=== PATIENT | female | born 1945 | race African-American/Black ===

== ENCOUNTER 2017-07-17 17:26 | Emergency (ER) | payer MEDICARE, BC ==
[~2017-07-17] VITALS: Ht 165.1 cm; Wt 83.0 kg
[2017-07-17] MEDS ORDERED: CLOP75TA PO (17:43)
[2017-07-17] MEDS ORDERED: ATOR10TA PO (17:43)
[2017-07-17] MEDS ORDERED: METO-269 PO (17:43)
[2017-07-17] MEDS ORDERED: LOSA50TA2 PO (17:43)
[2017-07-17] MEDS ORDERED: ASPI-630 PO (17:43)
--- NOTE | 2017-07-17 18:21 | EKG ---
[facility] [address] [place] [address] Test Date: 2017-07-17 Test Time: 17:37:10 Pat Name: ABDOULAYE GOMEZ Department: Room: Gender: F Director Of Culture: : 1945 Requested By: KAI SLADE Order Number: [id number] Reading MD: Yanique Ramesh Measurements Intervals [place] Rate: 122 P: MI: QRS: -18 QRSD: 88 T: -63 QT: 336 QTc: 480 Interpretive Statements ATRIAL FIB./FLUTTER WITH RAPID VENTRICULAR RESPONSE VENTRICULAR PREMATURE COMPLEX(ES) LEFTWARD AXIS LVH WITH REPOLARIZATION ABNORMALITY Electronically Signed On 07-21-2017 9:27:20 CDT by Yanique Ramesh
[2017-07-17] MEDS ORDERED: METOPROLOL TART IMMED RELEASE 50 MG TABLET. PO ONE (18:30)
[2017-07-17] MEDS ORDERED: OXYMETAZOLINE 0.05% NASAL SPRAY 30ML BOTTLE. NS ONE (18:30)
--- NOTE | 2017-07-17 18:56 | ED.ADGEN ---
Past Medical History Past Medical History: A-Fib, High Cholesterol, Hypertension Past Surgical History: Hysterectomy Alcohol Use: None Drug Use: None Adult General Chief Complaint Chief Complaint: NOSEBLEED HPI HPI Patient is a 71 year old woman, history of atrial fibrillation, hypertension, hyperlipidemia, obesity, on metoprolol and Cozaar, with recent medication changes about a week ago, who presents emergency Department with a complaint of epistaxis. Patient states that she was at work, making copies, when she felt "a warm trickle", and noted that her nose is bleeding. She denies any recent runny nose, nasal congestion, cough, sore throat, chest pain, shortness breath, nausea , vomiting, headache, weakness, numbness, tingling or other complaints. Patient noted to be in atrial fibrillation, with RVR, with heart rate fluctuating from the low 100s to the 120s upon arrival to the emergency department, blood pressures are 170s over 1 teens. Patient with a nasal clamp in place, no active bleeding noted at this time. She does take Plavix and aspirin daily. Has never had any previous episodes with epistaxis. Is not experiencing any bleeding at this time with nasal clamp in place. Review of Systems Review of Systems Constitutional: Denies fever or chills. [] Eyes: Denies change in visual acuity. [] HENT: Denies nasal congestion or sore throat. [] Respiratory: Denies cough or shortness of breath. Epistaxis. [] Cardiovascular: Denies chest pain or edema. [] GI: Denies abdominal pain, nausea, vomiting, bloody stools or diarrhea. [] : Denies dysuria. [] Musculoskeletal: Denies back pain or joint pain. [] Integument: Denies rash. [] Neurologic: Denies headache, focal weakness or sensory changes. [] Endocrine: Denies polyuria or polydipsia. [] Lymphatic: Denies swollen glands. [] Psychiatric: Denies depression or anxiety. [] Current Medications Current Medications Current Medications Medications (Trade) Dose Ordered Sig/Coty Start Time Stop Time Status Last Admin Dose Admin Metoprolol Tartrate (Lopressor) 50 mg 1X ONCE 07/17/17 18:30 07/17/17 18:31 DC 07/17/17 18:29 50 MG Oxymetazoline HCl (Afrin) 2 spray 1X ONCE 07/17/17 18:30 07/17/17 18:31 DC 07/17/17 18:28 2 SPRAY Allergies Allergies Allergies Coded Allergies Type Severity Reaction Last Updated Verified tetracycline Allergy Intermediate Rash 07/17/17 Yes Physical Exam Physical Exam Constitutional: Well developed, well nourished, no acute distress, non-toxic appearance. [] HENT: Normocephalic, atraumatic, bilateral external ears normal, oropharynx moist, no oral exudates, patient with nasal clamp in place, noted to have clotted blood in both naris, with dried blood in the oropharynx. No active bleeding identified. Eyes: PERRLA, EOMI, conjunctiva normal, no discharge. [] Neck: Normal range of motion, no tenderness, supple, no stridor. [] Cardiovascular: Irregular rate and rhythm, no murmur, S1, S2, no rubs or gallops is coughing now a [] Lungs & Thorax: Bilateral breath sounds clear to auscultation, no wheeze or rhonchi, rales. No chest or crepitus or tenderness. [] Abdomen: Bowel sounds normal, soft, no tenderness, no masses, no pulsatile masses. [] Skin: Warm, dry, no erythema, no rash. [] Back: No tenderness, no CVA tenderness. [] Extremities: No tenderness, no cyanosis, no clubbing, ROM intact, no edema. Negative Homans sign.[] Neurologic: Alert and oriented X 3, normal motor function, normal sensory function, no focal deficits noted. [] Psychologic: Affect normal, judgement normal, mood normal. [] Current Patient Data Vital Signs Vital Signs Date Time Temp Pulse Resp B/P (MAP) Pulse Ox O2 Delivery O2 Flow Rate FiO2 07/17/17 20:17 93 20 156/92 (113) 97 Room Air 07/17/17 17:26 98.4 98.4 Lab Values Laboratory Tests Test 07/17/17 19:19 POC Hemoglobin 12.9 g/dL (12-15) POC Hematocrit 38 % (36-40) POC Sodium 141 mmol/L (135-145) POC Potassium 3.1 mmol/L (3.5-5.0) L POC Chloride 105 mmol/L (98-110) POC Total CO2 22 mmol/L (23-32) L Anion Gap 18 mmol/L (6-14) H POC Blood Urea Nitrogen 13 mg/dL (8-26) POC Creatinine 0.8 mg/dL (0.5-1.4) Glucose Level 111 mg/dL (70-99) H POC Ionized Calcium (Genevieve) 1.19 mmol/L (1.13-1.32) Laboratory Tests 07/17/17 19:19 EKG EKG EC: Irregular rhythm, atrial fibrillation with RVR, Heart rate 122 beats/ minute, left axis deviation, left ventricular per hypertrophy, single PVC noted , QTc of 480, QRS of 88, no ST elevations, depressions noted with left internal hypertrophy as stated in V5 and V6, abnormal ECG, does not meet STEMI criteria. As interpreted by me.[] Radiology/Procedures Radiology/Procedures Not indicated.[] Course & Med Decision Making Course & Med Decision Making Pertinent Labs and Imaging studies reviewed. (See chart for details) Patient initially noted to be in A. fib with RVR, heart rate in the 120s, blood pressures elevated, 150s to 170s over 1 teens to 120. Patient did report that she had recent medication changes during a hospitalization at [facility], and has not yet followed with a primary care provider. I did give her a dose of her home metoprolol, 50 mg, which she states she did take earlier today as directed. On reevaluation, patient's heart rate is now in the 80s, blood pressures are 140s and 150s over 80s, she has had no further bleeding in the emergency department since application of the clamped by EMS en route to the ED. Evaluation shows a very small area of irritation in the inner aspect of the right [place], no evidence of any active bleeding, and no evidence of any posterior bleeding. Patient's son is at bedside, states that she is feeling fine , and is very anxious to be discharged home. She has had no bleeding in the ED for approximately 2 and half hours. Patient's vital signs remained stable after intervention as stated. I did discuss with her the importance of following up with her primary care provider, she stated that she may have missed an appointment due to her recent hospitalization. Patient had an i-STAT performed that revealed a hemoglobin of 12.9, with a sodium 141, potassium 3.1, and a chloride of 105 and glucose of 111. Patient states that she will be able to follow-up with her primary care provider tomorrow, I instructed her to contact Dr. Orozco tomorrow morning to arrange for prompt follow-up and reevaluation to determine if medication adjustments are needed, as I am concerned that she may not be of obtaining adequate blood pressure control and rate control with her current regimen. Patient voiced understanding and agreement with plan as stated, states she will return to the ED immediately if any new or concerning symptoms develop. Patient discharged home with son in stable condition with plan as stated above. Dragon Disclaimer Dragon Disclaimer This electronic medical record was generated, in whole or in part, using a voice recognition dictation system. Departure Impression: Primary Impression: Anterior epistaxis Additional Impressions: Atrial fibrillation with RVR Hypertension Disposition: HOME, SELF-CARE Condition: IMPROVED Problem Qualifiers KAI SLADE DO Jul 17, 2017 18:55
[2017-07-17 19:25] LABS: POTASSIUM ISTAT 3.1 mmol/L (3.5-5.0)
[2017-07-17 20:17] VITALS: BP 156/92
== END 2017-07-17 20:17 | disposition home or self-care (01) ==
LOC: ER 17:26
DX: R04.0 Epistaxis (principal); I48.0 Paroxysmal atrial fibrillation; I10 Essential (primary) hypertension; E78.00 Pure hypercholesterolemia, unspecified; Z88.1 Allergy status to other antibiotic agents
CPT/HCPCS: 80047; 93005; 99284-25

== ENCOUNTER 2017-08-05 15:29 | Emergency (ER) | payer MEDICARE, BC ==
[~2017-08-05 15:29] MED LIST: ASPI-630 PO; ATOR10TA PO; CLOP75TA PO; LOSA50TA2 PO; METO-269 PO
[2017-08-05 15:51] VITALS: BP 145/62
--- NOTE | 2017-08-05 16:08 | PHYS DOC ---
Past Medical History Past Medical History: A-Fib, High Cholesterol, Hypertension Past Surgical History: Hysterectomy Alcohol Use: None Drug Use: None Adult General Chief Complaint Chief Complaint: NOSEBLEED HPI HPI Patient is a 71 year old female who presents with complaint of nosebleed. Patient states that she started having nosebleed shortly prior to arrival. Patient states that the patient had bleeding that lasted approximately 30 minutes which prompted her to come to the emergency department. Patient did apply a nose clip prior to arrival in the emergency department as the bleeding had persisted. The patient states that she has history of A. fib and was previously placed on Plavix within the last 2 weeks. Patient states that she started getting frequent nosebleeds and was discontinued on Plavix 3 days ago. Patient denies any other use of blood thinners. Upon removal of the nose clip during triage, the patient's nosebleed has resolved. Patient denies any lightheadedness, dizziness, shortness of breath, or associated chest pain at this time. Review of Systems Review of Systems Constitutional: Denies fever or chills [] Eyes: Denies change in visual acuity, redness, or eye pain [] HENT: Epistaxis[] Respiratory: Denies cough or shortness of breath [] Cardiovascular: Denies chest pain or edema[] GI: Denies abdominal pain, nausea, vomiting, bloody stools or diarrhea [] : Denies dysuria or hematuria [] Musculoskeletal: Denies back pain or joint pain [] Integument: Denies rash or skin lesions [] Neurologic: Denies headache, focal weakness or sensory changes [] Allergies Allergies Allergies Coded Allergies Type Severity Reaction Last Updated Verified tetracycline Allergy Intermediate Rash 07/17/17 Yes Physical Exam Physical Exam Constitutional: Well developed, well nourished, no acute distress, non-toxic appearance. [] HENT: Normocephalic, atraumatic, bilateral external ears normal, no evidence of active bleeding and posterior pharynx, no oral exudates, no active bleeding. [] Eyes: PERRLA, EOMI, conjunctiva normal, no discharge. [] Neck: Normal range of motion, no tenderness, supple, no stridor. [] Cardiovascular:Heart rate regular rhythm, no murmur [] Lungs & Thorax: Bilateral breath sounds clear to auscultation [] Abdomen: Bowel sounds normal, soft, no tenderness, no masses, no pulsatile masses. [] Skin: Warm, dry, no erythema, no rash. [] Back: No tenderness, no CVA tenderness. [] Extremities: No tenderness, no cyanosis, no clubbing, ROM intact, no edema. [] Neurologic: Alert and oriented X 3, normal motor function, normal sensory function, no focal deficits noted. [] Current Patient Data Vital Signs Vital Signs Date Time Temp Pulse Resp B/P (MAP) Pulse Ox O2 Delivery O2 Flow Rate FiO2 08/05/17 15:51 98.0 80 18 97 Room Air 98.0 EKG EKG Not performed[] Radiology/Procedures Radiology/Procedures Not performed[] Course & Med Decision Making Course & Med Decision Making Pertinent Labs and Imaging studies reviewed. (See chart for details) Patient has no further bleeding at this time. Recommended the patient use of nasal saline to help moisturize nasal mucosa to help prevent further nose bleeding. Advise follow-up in 2-3 days with primary doctor for reevaluation and return emergency department for any worsening symptoms. Patient voiced understanding and in agreement with treatment plan. Dragon Disclaimer Dragon Disclaimer This electronic medical record was generated, in whole or in part, using a voice recognition dictation system. Departure Departure Impression: Primary Impression: Anterior epistaxis Disposition: HOME, SELF-CARE Condition: IMPROVED Referrals: EMMA BARRAGAN MD (PCP) Patient Instructions: Nosebleed Additional Instructions: You may use nasal saline spray as needed for nasal dryness. This is available [id number] at your local pharmacy. Be sure to apply pressure to the front portion of your nose for at least 20 minutes if you have any further nosebleeds. If this does not help relieve your symptoms, it is recommended that he return to emergency department for reevaluation. Follow-up with your primary doctor in 2-3 days. MARY DE LA FUENTE MD Aug 05, 2017 16:08
== END 2017-08-05 16:52 | disposition home or self-care (01) ==
LOC: ER 15:29
DX: R04.0 Epistaxis (principal); I48.91 Unspecified atrial fibrillation; I10 Essential (primary) hypertension; E78.00 Pure hypercholesterolemia, unspecified; Z88.1 Allergy status to other antibiotic agents; Z79.01 Long term (current) use of anticoagulants; Z90.710 Acquired absence of both cervix and uterus
CPT/HCPCS: 99281

== ENCOUNTER 2021-10-13 12:02 | Emergency (ER) | payer MEDICARE ==
[~2021-10-13] VITALS: Ht 165.1 cm; Wt 60.8 kg
[~2021-10-13 12:02] MED LIST changes: +LOSA-73 PO; -LOSA50TA2 PO
[2021-10-13 12:15] VITALS: BP 154/82
--- NOTE | 2021-10-13 12:15 | ED.ADGEN ---
Past Medical History Past Medical History: A-Fib, High Cholesterol, Hypertension Past Surgical History: Hysterectomy Smoking Status: Never Smoker Alcohol Use: None Drug Use: None General Adult HPI: HPI: Patient is a 75-year-old female who arrives ambulatory to the emergency department complaining of left forearm tenderness. Patient reports this morning she was feeding her cats and lifted a heavy new in order to put it down for her cats to feed and in doing so she feels as if she may have strained something. Patient states she does not have any pain in her elbow or arm. She further denies any weakness, sensory change or neurological deficit otherwise. She is awake, alert and nontoxic-appearing Review of Systems: Review of Systems: Constitutional: Denies fever or chills. [] Eyes: Denies change in visual acuity. [] HENT: Denies nasal congestion or sore throat. [] Respiratory: Denies cough or shortness of breath. [] Cardiovascular: Denies chest pain or edema. [] GI: Denies abdominal pain, nausea, vomiting, bloody stools or diarrhea. [] : Denies dysuria. [] Musculoskeletal: Reports extremity pain. Denies back pain or joint pain. [] Integument: Denies rash. [] Neurologic: Denies headache, focal weakness or sensory changes. [] Endocrine: Denies polyuria or polydipsia. [] Lymphatic: Denies swollen glands. [] Psychiatric: Denies depression or anxiety. [] Allergies: Allergies: Allergies Coded Allergies Type Severity Reaction Last Updated Verified tetracycline Allergy Intermediate Rash 07/17/17 Yes Physical Exam: PE: Constitutional: Well developed, well nourished, no acute distress, non-toxic appearance. [] HENT: Normocephalic, atraumatic, bilateral external ears normal, oropharynx moist, no oral exudates, nose normal. [] Eyes: PERRLA, EOMI, conjunctiva normal, no discharge. [] Neck: Normal range of motion, no tenderness, supple, no stridor. [] Cardiovascular:Heart rate regular rhythm, no murmur [] Lungs & Thorax: Bilateral breath sounds clear to auscultation [] Abdomen: Bowel sounds normal, soft, no tenderness, no masses, no pulsatile mass es. [] Skin: Warm, dry, no erythema, no rash. [] Back: No tenderness, no CVA tenderness. [] Extremities: No tenderness, no cyanosis, no clubbing, ROM intact, no edema. [] Neurologic: Alert and oriented X 3, normal motor function, normal sensory function, no focal deficits noted. [] Psychologic: Affect normal, judgement normal, mood normal. [] Current Patient Data: Vital Signs: Vital Signs Date Time Temp Pulse Resp B/P (MAP) Pulse Ox O2 Delivery O2 Flow Rate FiO2 10/13/21 12:15 97.7 74 18 154/82 (106) 98 Room Air 97.7 EKG: EKG: [] Heart Score: C/O Chest Pain: No Risk Factors: Risk Factors: DM, Current or recent (<one month) smoker, HTN, HLP, family history of CAD, obesity. Risk Scores: Score 0 - 3: 2.5% MACE over next 6 weeks - Discharge Home Score 4 - 6: 20.3% MACE over next 6 weeks - Admit for Clinical Observation Score 7 - 10: 72.7% MACE over next 6 weeks - Early Invasive Strategies Radiology/Procedures: Radiology/Procedures: [][facility] [address] [place] [address] IMAGING REPORT Signed PATIENT: ABDOULYAE GOMEZ ACCOUNT: [id number] : 1945 LOCATION: ER AGE: 75 SEX: F EXAM STATUS: PRE ER ORD. PHYSICIAN: LEONARD DIXON DO REASON: pain PROCEDURE: FOREARM LEFT XR FOREARM_LEFT 2 VIEWS History: Pain Comparison: None. Technique: 2 views of the left forearm. Findings: Osseous mineralization is normal. No acute fracture or dislocaton. Mild degenerative changes at the first CMC. No focal soft tissue swelling. Impression: 1. No acute osseous abnormality in the left forearm. Electronically signed by: Asad Graham MD (10/13/2021 12:57 PM) [facility] DICTATED and SIGNED BY: ASAD GRAHAM MD DATE: 10/13/21 [id number] 0 Course & Med Decision Making: Course & Med Decision Making Pertinent Labs and Imaging studies reviewed. (See chart for details) [] Dragon Disclaimer: Dragon Disclaimer: This electronic medical record was generated, in whole or in part, using a voice recognition dictation system. Departure Departure Impression: Primary Impression: Strain of left forearm Disposition: 01 HOME / SELF CARE / HOMELESS Condition: STABLE Referrals: NON,STAFF (PCP) Patient Instructions: Muscle Strain LEONARD DIXON DO Oct 13, 2021 12:15
--- NOTE | 2021-10-13 12:59 | RAD ---
XR FOREARM_LEFT 2 VIEWS History: Pain Comparison: None. Technique: 2 views of the left forearm. Findings: Osseous mineralization is normal. No acute fracture or dislocaton. Mild degenerative changes at the f irst CMC. No focal soft tissue swelling. Impression: 1. No acute osseous abnormality in the left forearm. Electronically signed by: Asad Guerrero MD (10/13/2021 12:57 PM) [facility]
== END 2021-10-13 13:35 | disposition home or self-care (01) ==
LOC: ER 12:02
DX: S56.912A Strain of unspecified muscles, fascia and tendons at forearm level, left arm, initial encounter (principal); I48.91 Unspecified atrial fibrillation; E78.00 Pure hypercholesterolemia, unspecified; I10 Essential (primary) hypertension; Z88.1 Allergy status to other antibiotic agents; X50.9XXA Other and unspecified overexertion or strenuous movements or postures, initial encounter; Y93.89 Activity, other specified; Y92.89 Other specified places as the place of occurrence of the external cause; Y99.8 Other external cause status
CPT/HCPCS: 73090; 99283